=== PATIENT | male | born 1935 | race Hispanic/Latino ===

== ENCOUNTER 2018-09-04 21:36 | Inpatient (IN) | payer MEDICARE, MEDICAID ==
[~2018-09-04 21:36] MED LIST: ISOVUE-370 76%-LOCM 1 ML ONE
[2018-09-04 22:22] LABS: #Eosinphils 0.3 thou/uL (0.0-0.7); #Lymphocytes 2.3 thou/uL (1.20-3.40); #Neutrophils 4.8 thou/uL (1.40-6.50); %Basophils 0.5 % (0.0-1.0); %Lymphocytes 27.5 % (21.0-51.0); %Monocytes 11.2 % (0.0-10.0); %Neutrophils 56.8 % (42.0-75.0); Mean Corpuscular HGB CONC 34.6 g/dL (32.0-36.0); Mean Corpuscular Hemoglobin 32.9 pg (27.0-31.0); Mean Corpuscular Volume 95.2 fL (78.0-98.0); Mean Platelet Volume 7.9 fL (7.4-10.4); Platelet Count 169 thou/uL (130-400); RBC Distribution Width 12.8 % (11.5-14.5); Red Blood Cell (RBC) Count 3.94 mill/uL (4.70-6.10); White Blood Cell (WBC) Count 8.4 thou/uL (4.8-10.8)
[2018-09-04 22:40] LABS: ALT (SGPT) 33 U/L (8-55); AST (SGOT) 33 U/L (5-34); Albumin 3.8 g/dL (3.4-4.8); Alkaline Phosphatase 96 U/L (40-150); Anion Gap 17 mmol/L (10-20); BUN (Urea Nitrogen) 12 mg/dL (8.4-25.7); Bilirubin, Total 0.4 mg/dL (0.2-1.2); Calc. Creatinine Clearance 0 mL/min (70-130); Calcium 9.5 mg/dL (7.8-10.44); Carbon Dioxide 23 mmol/L (23-31); Chloride 101 mmol/L (98-107); Estimated GFR-MDRD 85; Globulin 4.1 g/dL (2.4-3.5); Glucose 123 mg/dL (83-110); Potassium 3.6 mmol/L (3.5-5.1); Protein, Total 7.9 g/dL (5.8-8.1); Sodium 137 mmol/L (136-145)
--- NOTE | 2018-09-04 23:21 | CT ---
CT ABDOMEN AND PELVIS WITH CONTRAST: HISTORY: Sudden onset of bleeding from the patient's abdominal surgical scar in the left lower quadrant of the abdomen. The patient has a history of colon cancer, for which he had this surgery. COMPARISON: 04/28/2015 TECHNIQUE: Multiple contiguous axial images were obtained in a CT of the abdomen and pelvis with contrast. Mylene nal reformats were performed. FINDINGS: There is a stable, 1.2 cm hypodensity in the liver, which likely represents a small cyst. The gallbl adder has been removed. The kidneys, adrenal glands, spleen, and pancreas are unremarkable. No free air, free fluid, or stranding changes are seen in the abdomen or pelvis. The patient's lower rectus abdominis muscles are more thickened than they were on the prior examinati on. There is a small area of separation of the rectus abdominis muscles, measuring 1.1 cm in width. Fat appears to extend through this separation, into the subcutaneous tissues. There is the appearan ce of encapsulated omentum just beneath the defect within the abdominal cavity, measuring 7.9 cm in s ize. Between the rectus abdominis muscles, there is also a fluid collection, which may represent the known hematoma. This extends to the skin along the lower abdominal incision and likely represents t he known bleeding in this location. Degenerative changes are seen in the spine. The visualized inferior thorax is unremarkable. IMPRESSION: 1. The patient appears to have a small, recurrent hernia along the lower abdominal incision, through which omental fat is present. There is enlargement of the rectus abdominis muscle and high density fluid extending to the lower aspect of the incision, which likely represents the patient's bleeding. The patient may have bleeding near the rectus abdominis muscles/rectus sheath hematomas, which are e vacuating superficially along the lower aspect of the incision. Correlate with the patient's coagula tion status. POS: [facility]
[2018-09-04] MEDS ORDERED: Piperacillin/Tazobactam 4.5 GM VIAL ONE (23:55)
[2018-09-05 01:42] VITALS: BMI 25.9
[2018-09-05] MEDS ORDERED: Ondansetron PF 4 MG/2 ML Vial IVP PRN (02:30)
[2018-09-05] MEDS ORDERED: Ondansetron ODT 4 MG TAB SL PRN (02:30)
[2018-09-05 02:35] LABS: Lactic Acid 2.9 mmol/L (0.5-2.2)
[2018-09-05] MEDS: Dextrose 5 % And 0.9 % NaCl 1,000 ML IV SCH ×2 (03:23→16:39)
[2018-09-05] MEDS ORDERED: Piperacillin/Tazobactam 3.375 GM in Sodium Chloride 0.9% 100 ML IVPB SCH (06:00)
[2018-09-05] MEDS ORDERED: Dextrose 5% in Water 1,000 ML IV PRN (19:11)
[2018-09-05] MEDS ORDERED: HumaLOG 300 UNITS/3 ML VIAL SC PRN (19:11)
[2018-09-05] MEDS ORDERED: Dextrose 50% Abboject 50 ML SYRINGE SLOW IVP PRN (19:11)
[2018-09-05] MEDS ORDERED: Ibuprofen 600 MG TAB PO PRN (19:15)
[2018-09-05] MEDS ORDERED: Acetaminophen 500 MG TAB PO PRN ×2 (19:15→19:16)
[2018-09-05] MEDS ORDERED: traMADol HCl 50 MG TAB PO PRN ×2 (19:15)
[2018-09-05] MEDS: Piperacillin/Tazobactam 3.375 GM in Sodium Chloride 0.9% 100 ML IVPB SCH (20:40)
[2018-09-05] MEDS: Enoxaparin Sodium 40 MG/0.4 ML SYRINGE SC SCH (20:41)
[2018-09-05] MEDS ORDERED: Pravastatin Sodium 20 MG TAB PO SCH (21:00)
[2018-09-06] MEDS: Piperacillin/Tazobactam 3.375 GM in Sodium Chloride 0.9% 100 ML IVPB SCH ×4 (02:55→19:52)
--- NOTE | 2018-09-06 04:46 | HP ---
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 The patient underwent postoperative chemotherapy. The patient states for the past 2 to 3 months, he has been having drainage from his lower midline wound. He denies any trauma. He was seen in the emergency room on this occasion and evaluated. A CT scan of the abdomen and pelvis revealing lower rectus muscles more thickened than usual, area of separation of rectus muscles, infraumbilical midline 1.1 cm in width. The fat appears to extend to the separation of the subcutaneous tissues. There is appearance of a capsulated omentum just beneath the defect with abdominal cavity measured 7.9 cm in diameter. Between the rectus muscles, there also a fluid collection probably as a hematoma. On evaluation of the wound, there is thick blood appearing possibly purulent drainage. Cultures from this yesterday did not reveal any organisms on Gram stain. The patient's white count is 8. He has been afebrile. ALLERGIES: NONE. SOCIAL HISTORY: Tobacco, none. Alcohol, none. MEDICATIONS: At home; 1. Metformin 500 b.i.d. 2. Flomax 0.4 mg a day. 3. Pravastatin 20 mg . 4. Multivitamins daily. 5. Lisinopril 5 mg a day. 6. Finasteride 5 mg a day. 7. Aspirin 325 mg a day. 8. Tylenol daily. PAST MEDICAL HISTORY: Xuf-mvvagug-safokljie diabetes mellitus, hypertension, hyperlipidemia, BPH. PAST SURGICAL HISTORY: Cholecystectomy, open and sigmoid colon resection for cancer. PHYSICAL EXAMINATION: VITAL SIGNS: Height 5 foot 7 inches, weight 165 pounds, 26 BMI. Temperature 98.3 degrees, blood pressure 143/81. HEAD, EARS, EYES, NOSE, AND THROAT: Unremarkable. LUNGS: Clear to auscultation. CARDIAC: Regular rate and rhythm without murmur or gallop. ABDOMEN: Soft and nontender. Below his umbilicus midline, there is an area of mild redness and he has some old bloody purulent appearing drainage. EXTREMITIES: Unremarkable. ASSESSMENT AND PLAN: 1. Abdominal wound, lower midline. CAT scan suggests a small hernia. We will plan expiration tomorrow and give antibiotics tonight. We will plan to explore the wound and resection of the process, irrigation and closure of the defect. 2. Diabetes mellitus. 3. Hypertension. 4. History of T3 N0 M0 sigmoid colon cancer resection, status post chemotherapy. Job ID: [id number]
[2018-09-06] MEDS ORDERED: Lactated Ringer's 1,000 ML IV SCH (08:00)
[2018-09-06] MEDS ORDERED: metFORMIN 500 MG TAB PO SCH (08:00)
[2018-09-06] MEDS: Multivit, Therapeutic 1 TAB PO SCH (08:09)
[2018-09-06] MEDS: Finasteride 5 MG TAB PO SCH (08:09)
[2018-09-06] MEDS: Tamsulosin HCl 0.4 MG CAP PO SCH (08:09)
[2018-09-06] MEDS ORDERED: Aspirin 325 MG TAB PO SCH (09:00)
[2018-09-06] MEDS ORDERED: Lisinopril 5 MG TAB PO SCH (09:00)
[2018-09-06] MEDS ORDERED: Fentanyl 100 MCG/2 ML VIAL ONE ×4 (12:13→15:48)
[2018-09-06] MEDS ORDERED: PACU-Morphine 4MG/ML VIAL SLOW IVP PRN (13:26)
[2018-09-06] MEDS ORDERED: Promethazine HCl 25 MG/ML VIAL IM PRN (13:26)
[2018-09-06] MEDS ORDERED: Ondansetron HCl/PF 4 MG/2 ML Vial IVP PRN (13:26)
[2018-09-06] MEDS ORDERED: Promethazine HCl 25 MG/ML VIAL SLOW IVP PRN (13:26)
[2018-09-06] MEDS ORDERED: diphenhydrAMINE 50 MG/ML VIAL IM PRN (15:22)
[2018-09-06] MEDS ORDERED: HYDROmorphone 10 mg/100 ml CADD IVPB PRN (15:22)
[2018-09-06] MEDS ORDERED: diphenhydrAMINE 25 MG CAP PO PRN (15:22)
[2018-09-06] MEDS ORDERED: diphenhydrAMINE 50 MG/ML VIAL IVP PRN (15:22)
[2018-09-06] MEDS ORDERED: Zolpidem Tartrate 5 MG TAB PO PRN (15:22)
[2018-09-06] MEDS ORDERED: Naloxone HCl 0.4 mg/ml Vial IV PRN (15:22)
[2018-09-06] MEDS ORDERED: Communication Order-Pharmacy FS SCH (15:30)
--- NOTE | 2018-09-06 16:57 | OP ---
DATE OF PROCEDURE: 09/06/2018 PREOPERATIVE DIAGNOSES: History of sigmoid T4 N0 M0 colon cancer resection now four years later has incisional hernia, liquified necrosis omentum with intraabdominal abscess and rectus hematoma. PROCEDURES PERFORMED: Exploratory laparotomy, drainage of intraperitoneal abscess, resection of liquefied necrotic omentum, lysis of adhesions, appendectomy (involved in inflammatory process), closure of incisional hernia/wound dehiscence, fascial (from four years ago) with debridement of skin, subcutaneous tissue, and fascia, and closure of fascial defect. Wound VAC applied. ANESTHESIA: General. ESTIMATED BLOOD LOSS: 100 mL. DESCRIPTION OF PROCEDURE: The patient was taken to the operating room, where under general anesthesia, abdomen was clipped of hair, prepared with ChloraPrep, and draped in routine fashion. Cisneros catheter was placed. Incision was made through the old incision and lengthened. Following the incision extended from below the umbilicus to above the pubis, it was carried down to the skin and subcutaneous tissue. There was a severe inflammatory action with wall of inflammatory process in the subcutaneous tissue, extending through a fascial defect into the abdominal cavity, where there was necrotic liquified omentum. This was carefully dissected free from surrounding small bowel. To exactly identify structures, I had to lengthen the incision of the length described. Small bowel adhesions were taken down. There was some inflammatory capsule adherent to the small bowel, but there was no violation of small bowel. No sutures were required in the small bowel. Small bowel was not distended. The appendix was involved in inflammatory process and finally after it was taken down, although it was severely inflamed. There was no evidence of past appendicitis. Mesoappendix taken down with the LigaSure and stump divided. Endo-DENVER blue load stapler at the cecal stump was used to cauterize the cautery for hemostasis. Necrotic omentum removed, and the skin, subcutaneous tissue, and fascia debrided sharply, removing the inflammatory process back to healthy fascia and subcutaneous tissue. Abdominal cavity was thoroughly irrigated and bowel run to and fro from ligament of Treitz to cecum three times noting absence of any violation of small bowel. Right colon was normal. At this point, abdominal cavity thoroughly irrigated with several liters of saline solution, irrigant evacuated. Sponge and needle counts were correct. Seprafilm was applied and the fascia approximated with a combination of continuous and interrupted sutures of #1 PDS. Skin and subcutaneous tissues were irrigated. Upper skin and lower skin approximated with enid. Mid skin and subcutaneous tissues left open. Wound VAC applied. The patient tolerated the procedure well. NG tube palpated in good position prior to closure. Job ID: [id number]
[2018-09-06] MEDS: Lactated Ringer's 1,000 ML IV SCH ×2 (18:23→23:47)
[2018-09-06] MEDS: Acetaminophen 1,000 MG in Premix Bag 1 BAG IVPB SCH ×2 (18:23→23:40)
[2018-09-06] MEDS: Enoxaparin Sodium 40 MG/0.4 ML SYRINGE SC SCH (19:53)
[2018-09-06] MEDS: Pantoprazole 40 MG VIAL IVP SCH (19:53)
[2018-09-06] MEDS ORDERED: Ondansetron PF 4 MG/2 ML Vial ONE (20:01)
[2018-09-06] MEDS ORDERED: Lidocaine 1% PF 5 ML VIAL ONE (20:01)
[2018-09-06] MEDS ORDERED: Glycopyrrolate 0.2 MG/ML 5 ML SYRINGE ONE (20:01)
[2018-09-06] MEDS ORDERED: PROPOFOL 200 MG/20 ML VIAL ONE (20:01)
[2018-09-07] MEDS: Piperacillin/Tazobactam 3.375 GM in Sodium Chloride 0.9% 100 ML IVPB SCH ×4 (02:19→20:04)
[2018-09-07] MEDS: Lactated Ringer's 1,000 ML IV SCH ×2 (06:09→17:57)
[2018-09-07] MEDS: Acetaminophen 1,000 MG in Premix Bag 1 BAG IVPB SCH ×3 (06:09→17:55)
[2018-09-07 07:45] LABS: #Eosinphils 0.1 thou/uL (0.0-0.7); #Lymphocytes 2.2 thou/uL (1.20-3.40); #Monocytes 0.8 thou/uL (0.11-0.59); #Neutrophils 7.1 thou/uL (1.40-6.50); %Basophils 0.3 % (0.0-1.0); %Eosinophils 0.5 % (0.0-10.0); %Lymphocytes 21.3 % (21.0-51.0); %Monocytes 7.7 % (0.0-10.0); %Neutrophils 70.3 % (42.0-75.0); Hemoglobin 11.5 g/dL (14.0-18.0); Mean Corpuscular Hemoglobin 32.6 pg (27.0-31.0); Mean Corpuscular Volume 95.8 fL (78.0-98.0); Platelet Count 171 thou/uL (130-400); RBC Distribution Width 12.8 % (11.5-14.5); Red Blood Cell (RBC) Count 3.52 mill/uL (4.70-6.10); White Blood Cell (WBC) Count 10.1 thou/uL (4.8-10.8)
[2018-09-07 08:09] LABS: ALT (SGPT) 27 U/L (8-55); AST (SGOT) 25 U/L (5-34); Albumin 3.2 g/dL (3.4-4.8); Alkaline Phosphatase 45 U/L (40-150); Anion Gap 13 mmol/L (10-20); BUN (Urea Nitrogen) 9 mg/dL (8.4-25.7); Bilirubin, Total 0.8 mg/dL (0.2-1.2); Calc. Creatinine Clearance 67 mL/min (70-130); Calcium 8.4 mg/dL (7.8-10.44); Carbon Dioxide 25 mmol/L (23-31); Chloride 104 mmol/L (98-107); Estimated GFR-MDRD 85; Globulin 3.3 g/dL (2.4-3.5); Glucose 131 mg/dL (83-110); Potassium 4.3 mmol/L (3.5-5.1); Protein, Total 6.5 g/dL (5.8-8.1); Sodium 138 mmol/L (136-145)
[2018-09-07] MEDS: Finasteride 5 MG TAB PO SCH (08:36)
[2018-09-07] MEDS: Tamsulosin HCl 0.4 MG CAP PO SCH (08:37)
[2018-09-07] MEDS: Multivit, Therapeutic 1 TAB PO SCH (08:37)
[2018-09-07] MEDS: Enoxaparin Sodium 40 MG/0.4 ML SYRINGE SC SCH (20:04)
[2018-09-07] MEDS: Pantoprazole 40 MG VIAL IVP SCH (20:05)
--- NOTE | 2018-09-07 22:38 | PDOC.OP ---
Operative Note - Operative Note Operative Note: Patient is status post drainage of abdominal wall abscess and debridement of necrotic omentum. NG tube was placed but he denies any nausea and output has been minimal. Vitals are okay although heart rate is up a bit. Urine output has been good and labs are okay. He has a VAC dressing in place with minimal serosanguineous drainage. Assessment/plan: Doing well following operative debridement of necrotic omentum and old rectus sheath hematoma which had evolved into an abdominal wall abscess. We will try clamping his NG and if the output is minimal and he is not nauseated we will discontinue this and place him on clears. He states that he has been passing gas so if he tolerates clears we can advance him to full liquids tomorrow
[2018-09-08] MEDS: Acetaminophen 1,000 MG in Premix Bag 1 BAG IVPB SCH ×4 (00:18→18:00)
[2018-09-08] MEDS: Piperacillin/Tazobactam 3.375 GM in Sodium Chloride 0.9% 100 ML IVPB SCH ×4 (02:59→20:07)
[2018-09-08] MEDS: Lactated Ringer's 1,000 ML IV SCH ×3 (05:36→14:16)
[2018-09-08 06:46] LABS: #Eosinphils 0.2 thou/uL (0.0-0.7); #Lymphocytes 1.7 thou/uL (1.20-3.40); #Monocytes 0.8 thou/uL (0.11-0.59); #Neutrophils 7.1 thou/uL (1.40-6.50); %Basophils 0.3 % (0.0-1.0); %Eosinophils 1.9 % (0.0-10.0); %Lymphocytes 17.3 % (21.0-51.0); %Monocytes 7.7 % (0.0-10.0); %Neutrophils 72.8 % (42.0-75.0); Mean Corpuscular Hemoglobin 33.4 pg (27.0-31.0); Mean Corpuscular Volume 95.4 fL (78.0-98.0); Mean Platelet Volume 8.2 fL (7.4-10.4); Platelet Count 133 thou/uL (130-400); RBC Distribution Width 12.7 % (11.5-14.5); White Blood Cell (WBC) Count 9.8 thou/uL (4.8-10.8)
[2018-09-08 06:57] LABS: Anion Gap 12 mmol/L (10-20); BUN (Urea Nitrogen) 7 mg/dL (8.4-25.7); Calc. Creatinine Clearance 77 mL/min (70-130); Calcium 8.6 mg/dL (7.8-10.44); Carbon Dioxide 24 mmol/L (23-31); Chloride 103 mmol/L (98-107); Estimated GFR-MDRD Greater than 90; Glucose 115 mg/dL (83-110); Potassium 3.7 mmol/L (3.5-5.1); Sodium 135 mmol/L (136-145)
[2018-09-08] MEDS: Finasteride 5 MG TAB PO SCH (07:58)
[2018-09-08] MEDS: Tamsulosin HCl 0.4 MG CAP PO SCH (07:58)
[2018-09-08] MEDS: Multivit, Therapeutic 1 TAB PO SCH (07:58)
--- NOTE | 2018-09-08 17:43 | EKG ---
Test Reason : Blood Pressure : / mmHG Vent. Rate : 088 BPM Atrial Rate : 088 BPM P-R Int : 108 ms QRS Dur : 138 ms QT Int : 396 ms P-R-T Axes : 027 -55 012 degrees QTc Int : 479 ms Sinus rhythm with short VA Right bundle branch block Left anterior fascicular block Bifascicular block Moderate voltage criteria for LVH, may be normal variant Cannot rule out Septal infarct , age undetermined Abnormal ECG Confirmed by CORAZON POON ([id number]), supervising editor trailer CAMILA OLSEN ([id number]) on 09/08/2018 5:42:55 PM Referred By: Confirmed By:CORAZON POON
[2018-09-08] MEDS: Enoxaparin Sodium 40 MG/0.4 ML SYRINGE SC SCH (20:07)
[2018-09-08] MEDS: Pantoprazole 40 MG VIAL IVP SCH (20:07)
[2018-09-09] MEDS: Lactated Ringer's 1,000 ML IV SCH ×3 (00:20→13:18)
[2018-09-09] MEDS: Acetaminophen 1,000 MG in Premix Bag 1 BAG IVPB SCH ×4 (00:20→17:34)
[2018-09-09] MEDS: Piperacillin/Tazobactam 3.375 GM in Sodium Chloride 0.9% 100 ML IVPB SCH ×4 (01:14→20:19)
[2018-09-09] MEDS: Multivit, Therapeutic 1 TAB PO SCH (08:49)
[2018-09-09] MEDS: Finasteride 5 MG TAB PO SCH (08:49)
[2018-09-09] MEDS: Tamsulosin HCl 0.4 MG CAP PO SCH (08:49)
[2018-09-09] MEDS: Ondansetron PF 4 MG/2 ML Vial IVP PRN (10:25)
--- NOTE | 2018-09-09 13:38 | PRG ---
DATE OF SERVICE: SUBJECTIVE: Mr. Newton is postoperative day #3 from resection of necrotic omentum through an exploratory laparotomy with drainage of an intraperitoneal abscess. He has a wound VAC intact over his abdominal wound. He is on a clear liquid diet and denies any nausea or vomiting. He has had one episode of flatus, but not had a bowel movement. He is ambulating occasionally with the walking team. OBJECTIVE: VITAL SIGNS: On examination, he is afebrile with temperature of 97.5. His pulse is elevated and is currently about 118. Blood pressure is 126/78. He is urinating without difficulties in the urinal and it appears that he had 2900 mL of urine output yesterday. LUNGS: Clear to auscultation. ABDOMEN: Normoactive bowel sounds. Wound VAC is intact on his abdomen. LABORATORY DATA: His hemoglobin yesterday was 10, but has not been rechecked today. Electrolytes were not checked today either. ASSESSMENT AND PLAN: He appears to be progressing appropriately following his recent laparotomy. I will advance his diet up to full liquids today and decrease his IV fluids. Hopefully, a home wound VAC will be able to be arranged, as he looks like he may be ready for discharge in the next couple of days. Job ID: [id number]
[2018-09-09] MEDS: Enoxaparin Sodium 40 MG/0.4 ML SYRINGE SC SCH (20:18)
[2018-09-09] MEDS: Pantoprazole 40 MG VIAL IVP SCH (20:18)
[2018-09-09] MEDS: Promethazine HCl 25 MG/ML VIAL IM PRN (21:01)
[2018-09-09] MEDS ORDERED: HYDROcodone/Acetaminophen 7.5/325 mg Tablet PO PRN ×2 (22:00)
[2018-09-10] MEDS: Piperacillin/Tazobactam 3.375 GM in Sodium Chloride 0.9% 100 ML IVPB SCH ×4 (01:07→20:46)
[2018-09-10] MEDS: Lactated Ringer's 1,000 ML IV SCH ×2 (01:10→13:22)
[2018-09-10] MEDS: Ketorolac Tromethamine 30 MG/ML VIAL IVP PRN ×3 (02:38→20:46)
[2018-09-10] MEDS: Ondansetron PF 4 MG/2 ML Vial IVP PRN ×2 (02:38→16:50)
[2018-09-10 06:04] LABS: #Eosinphils 0.2 thou/uL (0.0-0.7); #Lymphocytes 1.7 thou/uL (1.20-3.40); #Monocytes 0.7 thou/uL (0.11-0.59); #Neutrophils 8.9 thou/uL (1.40-6.50); %Lymphocytes 14.6 % (21.0-51.0); %Monocytes 5.7 % (0.0-10.0); %Neutrophils 77.7 % (42.0-75.0); Hemoglobin 10.9 g/dL (14.0-18.0); Mean Corpuscular HGB CONC 33.8 g/dL (32.0-36.0); Mean Corpuscular Hemoglobin 32.4 pg (27.0-31.0); Mean Corpuscular Volume 95.9 fL (78.0-98.0); Mean Platelet Volume 7.6 fL (7.4-10.4); Platelet Count 193 thou/uL (130-400); RBC Distribution Width 13.1 % (11.5-14.5); Red Blood Cell (RBC) Count 3.36 mill/uL (4.70-6.10); White Blood Cell (WBC) Count 11.4 thou/uL (4.8-10.8)
[2018-09-10 06:22] LABS: Anion Gap 14 mmol/L (10-20); BUN (Urea Nitrogen) 11 mg/dL (8.4-25.7); Calc. Creatinine Clearance 74 mL/min (70-130); Calcium 8.8 mg/dL (7.8-10.44); Carbon Dioxide 21 mmol/L (23-31); Chloride 107 mmol/L (98-107); Estimated GFR-MDRD Greater than 90; Glucose 126 mg/dL (83-110); Sodium 138 mmol/L (136-145)
--- NOTE | 2018-09-10 08:23 | PRG ---
DATE OF SERVICE: 09/10/2018 SUBJECTIVE: Mr. Newton is postoperative day number 4 from resection of necrotic omentum through an exploratory laparotomy with drainage of an intra-abdominal abscess. There was no drain left after his surgery. He has a wound VAC over his open abdominal wound. He was on a clear liquid diet yesterday and seemed to be doing well, and he was advanced to a full liquid diet. He tells me that he developed vomiting and heartburn overnight. He has not had any further flatus or bowel movement. OBJECTIVE: GENERAL: On examination, he is afebrile with temperature of 99.3. His pulse is 100, which has been stable over the past 3 days. His blood pressure is 150/78. LUNGS: Clear to auscultation. ABDOMEN: Appears distended, but seems to have normoactive bowel sounds. There is some mild discomfort with palpation, but no acute tenderness or peritoneal findings. LABORATORY DATA: Basic metabolic panel for today is essentially normal, except his CO2 has dropped from 24 down to 21 over the past couple of days. His CBC shows his white blood cell count has gone up from 9.8 to 11.4. His hemoglobin is stable at 10.9. ASSESSMENT: He had an episode of vomiting last night. I will check abdominal x-ray today. His abdomen looks a little distended, but does not sound as though there is any ileus or obstructive process. Diet will be managed based upon the appearance of his abdominal x-ray. For now, decrease him to clear liquids. Labs will be checked again tomorrow. He continues to receive Zosyn as an antibiotic. Job ID: [id number]
[2018-09-10] MEDS: Tamsulosin HCl 0.4 MG CAP PO SCH (08:59)
[2018-09-10] MEDS: Finasteride 5 MG TAB PO SCH (08:59)
[2018-09-10] MEDS: Multivit, Therapeutic 1 TAB PO SCH (08:59)
--- NOTE | 2018-09-10 09:44 | RAD ---
KUB: DATE: 09/10/2018. PROVIDED CLINICAL HISTORY: Ileus. FINDINGS: The abdominal bowel gas pattern is nonspecific. The supine nature of the study is not sensitive for detection of free air. Catheter overlies the pelvis and right superior and inferior pubic rami. Cut aneous enid overlie the anterior aspect of the abdomen. IMPRESSION: Nonspecific bowel gas pattern. POS: [facility]
[2018-09-10] MEDS ORDERED: Polyethylene Glycol 3350 17 GM Packet PO SCH (09:45)
[2018-09-10] MEDS: Pantoprazole 40 MG VIAL IVP SCH (20:50)
[2018-09-10] MEDS: Enoxaparin Sodium 40 MG/0.4 ML SYRINGE SC SCH (20:51)
[2018-09-11] MEDS: Piperacillin/Tazobactam 3.375 GM in Sodium Chloride 0.9% 100 ML IVPB SCH ×4 (02:22→20:59)
[2018-09-11] MEDS: Lactated Ringer's 1,000 ML IV SCH (02:44)
[2018-09-11 06:16] LABS: #Eosinphils 0.2 thou/uL (0.0-0.7); #Lymphocytes 1.8 thou/uL (1.20-3.40); #Monocytes 0.8 thou/uL (0.11-0.59); #Neutrophils 10.7 thou/uL (1.40-6.50); %Basophils 0.1 % (0.0-1.0); %Eosinophils 1.4 % (0.0-10.0); %Lymphocytes 13.1 % (21.0-51.0); %Monocytes 5.8 % (0.0-10.0); %Neutrophils 79.7 % (42.0-75.0); Hemoglobin 9.7 g/dL (14.0-18.0); Mean Corpuscular Hemoglobin 32.7 pg (27.0-31.0); Mean Platelet Volume 7.7 fL (7.4-10.4); Platelet Count 147 thou/uL (130-400); RBC Distribution Width 13.2 % (11.5-14.5); Red Blood Cell (RBC) Count 2.96 mill/uL (4.70-6.10); White Blood Cell (WBC) Count 13.5 thou/uL (4.8-10.8)
[2018-09-11 06:38] LABS: Anion Gap 13 mmol/L (10-20); BUN (Urea Nitrogen) 11 mg/dL (8.4-25.7); Calc. Creatinine Clearance 80 mL/min (70-130); Calcium 8.2 mg/dL (7.8-10.44); Carbon Dioxide 24 mmol/L (23-31); Chloride 104 mmol/L (98-107); Estimated GFR-MDRD Greater than 90; Glucose 105 mg/dL (83-110); Potassium 3.6 mmol/L (3.5-5.1); Sodium 137 mmol/L (136-145)
[2018-09-11] MEDS: Tamsulosin HCl 0.4 MG CAP PO SCH (08:06)
[2018-09-11] MEDS: Polyethylene Glycol 3350 17 GM Packet PO SCH (08:06)
[2018-09-11] MEDS: Multivit, Therapeutic 1 TAB PO SCH (08:06)
[2018-09-11] MEDS: Finasteride 5 MG TAB PO SCH (08:06)
[2018-09-11] MEDS: Ondansetron PF 4 MG/2 ML Vial IVP PRN (08:26)
[2018-09-11] MEDS ORDERED: Polyethylene Glycol 3350 17 GM Packet PO SCH ×2 (09:00)
[2018-09-11] MEDS: Promethazine HCl 25 MG/ML VIAL IM PRN (10:57)
[2018-09-11] MEDS ORDERED: Fleet Enema 133 ML BOT PR SCH (16:15)
--- NOTE | 2018-09-11 16:58 | PRG ---
DATE OF SERVICE: 09/11/2018 SUBJECTIVE: Mr. Newton is postoperative day #5 from resection of necrotic omentum and repair of abdominal wall hernia. He apparently had an intraabdominal abscess. There was no drain left after surgery. He still has a wound VAC over his abdominal wound. He has still been on a clear liquid diet. He tells me he has vomited, but I cannot get a clear story from him as far as when he vomited or how much he vomited or whether he even vomited up food contents as opposed to spit. He tells me he has ambulated in the hallway and urinated well. He notes a sensation of some abdominal distention and discomfort. He tells me he has not had a bowel movement in the past 24 hours, but he believes he is passing flatus. I obtained a KUB yesterday, which revealed a nonspecific gas pattern. Laboratory studies were obtained today. His hemoglobin level was dropped a little bit from 10.9 yesterday down to 9.7 today. His white blood cell count has risen from 11 yesterday to 13.5 today. He has left shift associated with this. His basic metabolic panel is entirely normal. OBJECTIVE: VITAL SIGNS: He is afebrile. Pulse is in the 90s and regular. Blood pressure is 155/83. LUNGS: Clear to auscultation. ABDOMEN: Bowel sounds present. In a couple of areas, he seemed to be somewhat tympanitic. He does appear to have some abdominal distention, specifically in the upper abdomen. He has dressing intact over his midline incision. There is mild discomfort diffusely to palpation, but no focal area of tenderness. EXTREMITIES: Unremarkable. ASSESSMENT: The patient continues to stall in regard to his recuperation. His bowel function has not allowed him to advance. Whether he has some degree of ileus or obstructive pattern, it is difficult to discern. He continues to receive intravenous antibiotics with Zosyn. His cultures, which I suspect were from the time of surgery, were negative. For now, we will continue with a clear liquid diet. I will have an enema performed on him to see if this helps him with his constipation. He is getting MiraLAX daily. Since he has delayed return of bowel function that is somewhat unanticipated and his white blood cell count is rising, I will order a CT scan of his abdomen and pelvis to ensure that there is no underlying problem that is causing this. Job ID: [id number]
--- NOTE | 2018-09-11 18:52 | CT ---
ABDOMEN AND PELVIC CT SCAN IV CONTRAST: 09/11/18 HISTORY: 83-year-old male with history of nausea and vomiting, white blood cell elevation and distention. Small bilateral pleural effusions. Bibasilar pulmonary parenchymal changes are noted in a patchy dist ribution throughout the right and left lower lobes involving minimally the right middle lobe and ling davina as well. I favor this to represent bilateral atypical pneumonia. There is some scattered free int raperitoneal air consistent with recent surgery. Small stable left lobe of liver cysts. There is some dilatation and distention of the stomach with some fluid and gas as well as mildly dilated jejunum i ncluding one moderately dilated loop of jejunum up to approximately 0.5 cm possibly focal ileus versu s possibility of low grade partial small bowel obstruction. There is scattered gas and some fluid thr oughout the small bowel and large bowel. Postoperative changes are noted in the anterior abdominal wa ll with correction of the previously noted anterior abdominal wall hernia. There is an approximately 3.6 x 8.2 cm diameter circumscribed fluid collection beneath the anterior abdominal wall at the opera tive site with some subtle increased attenuation, I favor this being a postoperative seroma. There ap pears to be some trace free fluid in the pelvis. No biliary ductal dilatation. The pancreas, spleen, adrenal glands are unremarkable. No renal calculus or obstruction. Probable small left renal cyst. Small fat containing left inguinal hernia. IMPRESSION: Fairly extensive bilateral lower lobe patchy interstitial and alveolar parenchymal changes with small pleural effusions. This is more diffuse than what would be expected with subsegmental atelectasis a nd may well represent a component of bilateral atypical pneumonia recent postoperative changes in the abdomen with some dilatation and distention of the stomach and proximal small bowel with one jejunal bowel loop up to approximately 5 cm which I favor to be related to ileus rather than low grade parti al small bowel obstruction. There is some scattered upper retroperitoneal lymph nodes which are up to borderline in size but without overt lymphadenopathy. Status post cholecystectomy without ductal dil atation. Somewhat irregular shaped circumscribed fluid collection beneath the anterior abdominal wall at the level of the umbilicus favored to be a postoperative seroma. Trace free fluid in the pelvis. Small fat containing left inguinal hernia. Other findings as above. POS: [facility]
[2018-09-11] MEDS: Enoxaparin Sodium 40 MG/0.4 ML SYRINGE SC SCH (21:02)
[2018-09-11] MEDS: Pantoprazole 40 MG VIAL IVP SCH (21:02)
[2018-09-12] MEDS ORDERED: Clopidogrel Bisulfate 75 MG TAB ONE (01:16)
[2018-09-12] MEDS: Piperacillin/Tazobactam 3.375 GM in Sodium Chloride 0.9% 100 ML IVPB SCH ×4 (02:18→20:55)
[2018-09-12] MEDS: Lactated Ringer's 1,000 ML IV SCH ×2 (04:46→08:12)
[2018-09-12 06:04] LABS: #Eosinphils 0.1 thou/uL (0.0-0.7); #Lymphocytes 1.2 thou/uL (1.20-3.40); #Monocytes 0.8 thou/uL (0.11-0.59); %Basophils 0.3 % (0.0-1.0); %Lymphocytes 9.9 % (21.0-51.0); %Monocytes 6.6 % (0.0-10.0); %Neutrophils 82.2 % (42.0-75.0); Hemoglobin 9.1 g/dL (14.0-18.0); Mean Corpuscular HGB CONC 33.9 g/dL (32.0-36.0); Mean Corpuscular Hemoglobin 32.2 pg (27.0-31.0); Mean Platelet Volume 7.6 fL (7.4-10.4); Platelet Count 140 thou/uL (130-400); RBC Distribution Width 13.1 % (11.5-14.5); Red Blood Cell (RBC) Count 2.83 mill/uL (4.70-6.10); White Blood Cell (WBC) Count 12.2 thou/uL (4.8-10.8)
[2018-09-12] MEDS: Finasteride 5 MG TAB PO SCH (08:04)
[2018-09-12] MEDS: Tamsulosin HCl 0.4 MG CAP PO SCH (08:04)
[2018-09-12] MEDS: Multivit, Therapeutic 1 TAB PO SCH (08:04)
[2018-09-12] MEDS: Polyethylene Glycol 3350 17 GM Packet PO SCH ×2 (08:05)
[2018-09-12] MEDS ORDERED: Acetaminophen 500 MG TAB PO PRN (11:36)
[2018-09-12] MEDS ORDERED: traMADol HCl 50 MG TAB PO PRN ×2 (11:36)
--- NOTE | 2018-09-12 13:03 | PRG ---
DATE OF SERVICE: 09/12/2018 SUBJECTIVE: Mauro Newton is doing well today. He is afebrile. He is tolerating his diet. He reports having bowel movements. He has not had any nausea or vomiting. He is hungry. His abdominal wound VAC was changed today and the wound is healing, granulating, looks very good. The wound is intact above and below where the enid are present. OBJECTIVE: VITAL SIGNS: Temperature 98.1 degrees, respirations 16, blood pressure 150/73. LUNGS: Clear to auscultation. CARDIAC: Regular rhythm without murmur or gallop. ABDOMEN: Soft, nontender. EXTREMITIES: Unremarkable. LABORATORY DATA: White count 12, hemoglobin 9.1. Basic metabolic profile was normal yesterday. ASSESSMENT AND PLAN: Recovering from laparotomy. Blood cultures of abdomen reveals Streptococcus intermedius in nutrient broth only. He has been afebrile. Overall, the patient is doing well. At this point, we will advance his diet. Resume his home medications. Anticipate him being discharged home in the next day or two. We will stop his IV fluids. Continue his IV Zosyn for now. Anticipate discharge home in the next 24 to 48 hours pending clinical course. Job ID: [id number]
--- NOTE | 2018-09-12 16:46 | PRG ---
DATE OF SERVICE: 09/12/2018 Mauro Newton four years ago underwent rectosigmoid resection for near obstructing cancer. He was admitted this hospitalization because of an abscess in his abdomen. Cultures reveal Streptococcus. There are no radiological or physical findings of cancer. Currently, approval of the wound VAC has request that I dictate this to state that there is no cancer in his wound bed; this is of course not present. There is no evidence of disease currently. Discharge awaiting wound VAC approval. Job ID: [id number]
[2018-09-12] MEDS: Enoxaparin Sodium 40 MG/0.4 ML SYRINGE SC SCH (20:55)
[2018-09-13] MEDS: Piperacillin/Tazobactam 3.375 GM in Sodium Chloride 0.9% 100 ML IVPB SCH ×3 (01:40→13:28)
[2018-09-13] MEDS: Finasteride 5 MG TAB PO SCH (08:35)
[2018-09-13] MEDS: Multivit, Therapeutic 1 TAB PO SCH (08:35)
[2018-09-13] MEDS: Polyethylene Glycol 3350 17 GM Packet PO SCH (08:36)
[2018-09-13] MEDS: Tamsulosin HCl 0.4 MG CAP PO SCH (08:36)
--- NOTE | 2018-09-13 20:21 | PRG ---
DATE OF SERVICE: 09/13/2018 SUBJECTIVE: Mauro Newton is doing very well today. He is tolerating his diet. He has not had any nausea or vomiting. OBJECTIVE: VITAL SIGNS: Temperature 98.3 degrees, pulse 91, blood pressure 135/75. Urine output is very good. LUNGS: Clear to auscultation. CARDIAC: Regular rate and rhythm without murmur or gallop. ABDOMEN: Soft, nontender. Wound VAC in place. LABORATORY DATA: No labs today. ASSESSMENT AND PLAN: Overall, the patient is doing very well. Plan is for discharge home tomorrow if we can arrange outpatient wound VAC. We will stop his IV antibiotics and place him on oral antibiotics. Job ID: [id number]
[2018-09-13] MEDS: Enoxaparin Sodium 40 MG/0.4 ML SYRINGE SC SCH (21:21)
[2018-09-13] MEDS: Amoxicillin/Potassium Clav 500 MG TAB PO SCH (21:22)
[2018-09-14] MEDS: Amoxicillin/Potassium Clav 500 MG TAB PO SCH (08:31)
[2018-09-14] MEDS: Finasteride 5 MG TAB PO SCH (08:31)
[2018-09-14] MEDS: Multivit, Therapeutic 1 TAB PO SCH (08:32)
[2018-09-14] MEDS: Polyethylene Glycol 3350 17 GM Packet PO SCH (08:32)
[2018-09-14] MEDS: Tamsulosin HCl 0.4 MG CAP PO SCH (08:32)
[2018-09-14 16:10] VITALS: BP 149/75; TEMP 98
[2018-09-14] MEDS ORDERED: Ibuprofen 600 MG TAB PO PRN (17:40)
--- NOTE | 2018-09-15 15:30 | DIS ---
DATE OF ADMISSION: 09/04/2018 DATE OF DISCHARGE: 09/14/2018 HOSPITAL COURSE: Mauro Newton is an 83-year-old male patient admitted to the hospital from the emergency room on 09/04/2018, discharged on 09/14/2018. The patient was seen in the emergency room complaining of abdominal pain and fever. He underwent a CAT scan revealing an infectious process intraabdominal extending to the rectus muscles and had a defect in the midline infraumbilical. This defect was less, was 1.5 to 1.1 cm in diameter, extending the subcutaneous tissues. In 2014, the patient underwent a laparoscopic lower midline incision for a T4 N0 M0 rectosigmoid cancer. He underwent postoperative chemotherapy. He had done well postsurgically until this event. The patient was taken to the operating room for exploration finding liquified soupy omentum involving inflammatory process with adhesion disease. This required extension of his laparotomy incision and the infected tissue was removed and cultured. Cultures revealed Streptococcus intermedius. Persistent broth only. His operation involved adhesiolysis. There was no enterotomy. No bowel resection. This does seem to be all from infected, inflamed omentum. The fascia was debrided. Subcutaneous tissues were debrided. Skin was debrided. The fascia was closed with PDS suture and a wound VAC applied. At this point, the patient has been discharged home with Tylenol, ibuprofen for pain, and Ultram if needed for pain, although he has not even used Ultram in the last few days. He is sent home on Augmentin 500 mg twice a day for 7 days. Outpatient wound VAC care is arranged. He will have a followup in my office in approximately 2 weeks. We will evaluate his wound and make determinations of continued wound care after that. He should avoid lifting over 25 pounds. There is no evidence of cancer at this time. DISCHARGE MEDICATIONS: The patient will resume his home medications; 1. Metformin 500 mg b.i.d. 2. Flomax 0.4 mg a day. 3. Pravastatin 20 mg at bedtime. 4. Multivitamins daily. 5. Lisinopril 5 mg daily. 6. Finasteride 5 mg daily. 7. Aspirin 325 mg a day. 8. Tylenol 1000 mg p.o. q.6 hours. 9. Ultram 50 mg p.o. q.i.d. 1 to 2 p.r.n. pain. Job ID: [id number]
== END 2018-09-14 18:17 | disposition home or self-care (01) | DRG 901 ==
LOC: ERS 21:36 → SURG B 23:30 → SJJU 09-07 22:10
PROVIDERS: ADMIT Surgery; ATTEND Surgery
PROC: 0D9W0ZZ Drainage of Peritoneum, Open Approach (ICD-10-PCS; principal; 2018-09-06)
PROC: 0JB80ZZ Excision of Abdomen Subcutaneous Tissue and Fascia, Open Approach (ICD-10-PCS; 2018-09-06)
PROC: 0DTJ0ZZ Resection of Appendix, Open Approach (ICD-10-PCS; 2018-09-06)
PROC: 0DTU0ZZ Resection of Omentum, Open Approach (ICD-10-PCS; 2018-09-06)
PROC: 0WQF0ZZ Repair Abdominal Wall, Open Approach (ICD-10-PCS; 2018-09-06)
DX: T81.30XA Disruption of wound, unspecified, initial encounter (principal); K65.1 Peritoneal abscess; K55.069 Acute infarction of intestine, part and extent unspecified; L02.211 Cutaneous abscess of abdominal wall; K43.2 Incisional hernia without obstruction or gangrene; E11.9 Type 2 diabetes mellitus without complications; I10 Essential (primary) hypertension; E78.5 Hyperlipidemia, unspecified; N40.0 Benign prostatic hyperplasia without lower urinary tract symptoms; K59.00 Constipation, unspecified; B95.5 Unspecified streptococcus as the cause of diseases classified elsewhere; Z85.038 Personal history of other malignant neoplasm of large intestine; Z90.49 Acquired absence of other specified parts of digestive tract
CPT/HCPCS: 36415; 36416; 74018; 74177; 80048; 80053; 83605; 85025; 87040; 87070; 87076; 87205; 88304; 88307; 93005; 93010; 96365; C9113; G8978-GP-CL; G8979-GP-CJ; J0131; J1650; J1885; J2001; J2405; J2543; J2550; J2704; J3010; J7050

== ENCOUNTER 2021-08-15 17:40 | Inpatient (IN) | payer MEDICARE, MEDICAID ==
[~2021-08-15 17:40] MED LIST changes: -ISOVUE-370 76%-LOCM 1 ML ONE; +Iopamidol-370 76% 500 ML 1 ML ONE
[2021-08-15 18:12] LABS: Bacteria/HPF None Seen HPF (None Seen); Bilirubin Negative (Negative); Blood, Urine 1+ (Negative); Clarity Clear (Clear); Glucose, Urine (Dipstick) Normal (Negative); Ketone, Urine 10 mg/dL (Negative); Leukocyte Negative Leu/uL (Negative); Nitrite Negative (Negative); Protein, Urine (Dipstick) 50 mg/dL (Neg-Trace); RBC/HPF 0-3 HPF (0-3); Squamous Epithelial 0-3 HPF (0-3); Urobilinogen Normal mg/dL (Less than 2); WBC/HPF 0-3 HPF (0-3); pH, Urine 5.5 (5.0-9.0)
[2021-08-15 18:33] LABS: #Lymphocytes 1.2 thou/uL (1.20-3.40); #Monocytes 0.8 thou/uL (0.11-0.59); #Neutrophils 6.1 thou/uL (1.40-6.50); %Basophils 0.2 % (0.0-1.0); %Eosinophils 0.2 % (0.0-10.0); %Lymphocytes 14.9 % (21.0-51.0); %Monocytes 10.3 % (0.0-10.0); %Neutrophils 74.5 % (42.0-75.0); Hemoglobin 13.1 g/dL (14.0-18.0); Mean Corpuscular HGB CONC 35.5 g/dL (32.0-36.0); Mean Corpuscular Hemoglobin 34.7 pg (27.0-31.0); Mean Corpuscular Volume 97.8 fL (78.0-98.0); RBC Distribution Width 12.4 % (11.5-14.5); Red Blood Cell (RBC) Count 3.77 mill/uL (4.70-6.10); White Blood Cell (WBC) Count 8.2 thou/uL (4.8-10.8)
[2021-08-15] MEDS ORDERED: Albuterol 200 PUFF (6.7GM INHALER) ONE (18:39)
[2021-08-15 18:42] LABS: Prothrombin Time 13.6 sec (12.0-14.7)
[2021-08-15 18:43] LABS: PTT 44.1 sec (22.9-36.1)
[2021-08-15 18:49] LABS: Platelet Count 87 thou/uL (130-400); Platelet Morphology Comment Appears Decreased; RBC Morphology Normal
[2021-08-15] MEDS ORDERED: Cefepime 2 GM VIAL ONE (18:54)
[2021-08-15 18:55] LABS: ALT (SGPT) 27 U/L (8-55); AST (SGOT) 28 U/L (5-34); Albumin 3.8 g/dL (3.4-4.8); Alkaline Phosphatase 49 U/L (40-110); Anion Gap 16 mmol/L (10-20); BUN (Urea Nitrogen) 16 mg/dL (8.4-25.7); Bilirubin, Total 0.8 mg/dL (0.2-1.2); Calc. Creatinine Clearance 0 mL/min (70-130); Calcium 8.2 mg/dL (7.8-10.44); Carbon Dioxide 20 mmol/L (23-31); Chloride 102 mmol/L (98-107); Globulin 3.1 g/dL (2.4-3.5); Glucose 128 mg/dL (83-110); Lipase 16 U/L (8-78); Magnesium 1.5 mg/dL (1.6-2.6); Potassium 3.8 mmol/L (3.5-5.1); Protein, Total 6.9 g/dL (5.8-8.1); Sodium 134 mmol/L (136-145)
[2021-08-15] MEDS ORDERED: Ketorolac Tromethamine 30 MG/ML VIAL ONE (20:06)
[2021-08-15] MEDS ORDERED: Magnesium 2 GM/50 ML BAG (IN WATER) ONE (20:06)
[2021-08-15] MEDS ORDERED: Acetaminophen 650 MG Suppository PR PRN (20:50)
[2021-08-15] MEDS ORDERED: Ondansetron ODT 4 MG TAB PO PRN (20:50)
[2021-08-15] MEDS ORDERED: Senokot S 8.6-50 MG TAB PO PRN (20:50)
[2021-08-15] MEDS ORDERED: Ondansetron PF 4 MG/2 ML Vial IVP PRN (20:50)
[2021-08-15] MEDS ORDERED: Dextrose 50% Abboject 50 ML SYRINGE SLOW IVP PRN (20:53)
[2021-08-15] MEDS ORDERED: Dextrose 5% in Water 1,000 ML IV PRN (20:53)
[2021-08-15] MEDS ORDERED: HumaLOG 300 UNITS/3 ML VIAL SC PRN ×2 (20:53)
[2021-08-15] MEDS ORDERED: Albuterol Sulfate 2.5 mg/3 ml Neb NEB PRN (20:55)
[2021-08-15] MEDS ORDERED: Vancomycin 1 GM in Premix Bag 1 BAG IVPB SCH (21:00)
[2021-08-15 21:26] LABS: SARS-CoV-2 NAA Rapid Test Not Detected (NotDetected)
[2021-08-15] MEDS: Sodium Chloride 0.9% 1,000 ML IV SCH (21:34)
[2021-08-15 21:52] VITALS: BMI 26.5
[2021-08-15] MEDS ORDERED: VANCOMYCIN 1.75 GM/350 ML BAG 1.75 GM in Premix Bag 1 BAG IVPB SCH (22:30)
[2021-08-16] MEDS: Acetaminophen 325 MG TAB PO PRN ×2 (05:00→20:42)
[2021-08-16] MEDS: Sodium Chloride 0.9% 1,000 ML IV SCH ×2 (05:01→14:09)
[2021-08-16 05:29] LABS: #Lymphocytes 1.9 thou/uL (1.20-3.40); #Monocytes 0.9 thou/uL (0.11-0.59); %Basophils 0.1 % (0.0-1.0); %Eosinophils 0.5 % (0.0-10.0); %Lymphocytes 24.3 % (21.0-51.0); %Monocytes 11.8 % (0.0-10.0); %Neutrophils 63.3 % (42.0-75.0); Hemoglobin 12.8 g/dL (14.0-18.0); Mean Corpuscular HGB CONC 33.7 g/dL (32.0-36.0); Mean Corpuscular Hemoglobin 33.4 pg (27.0-31.0); Mean Corpuscular Volume 99.1 fL (78.0-98.0); Mean Platelet Volume 9.2 fL (7.4-10.4); Platelet Count 84 thou/uL (130-400); RBC Distribution Width 12.4 % (11.5-14.5); Red Blood Cell (RBC) Count 3.84 mill/uL (4.70-6.10)
[2021-08-16 05:46] LABS: Anion Gap 15 mmol/L (10-20); BUN (Urea Nitrogen) 15 mg/dL (8.4-25.7); Calc. Creatinine Clearance 66 mL/min (70-130); Calcium 8.5 mg/dL (7.8-10.44); Carbon Dioxide 23 mmol/L (23-31); Chloride 104 mmol/L (98-107); Glucose 92 mg/dL (83-110); Sodium 138 mmol/L (136-145)
[2021-08-16] MEDS: Enoxaparin Sodium 30 MG/0.3 ML SYRINGE SC SCH (07:55)
[2021-08-16] MEDS: Cefepime 1 GM in Sodium Chloride 0.9% 100 ML IVPB SCH ×2 (07:55→20:38)
[2021-08-16] MEDS ORDERED: FLU VACC QS2021-22(65YR UP)/PF 240 MCG/0.7 ML SYRINGE IM ONE (09:00)
[2021-08-16] MEDS ORDERED: Vancomycin 1.5 GRAM/300 ML BAG 1.5 GM in Premix Bag 1 BAG IVPB SCH (22:00)
[2021-08-17 04:55] LABS: #Eosinphils 0.1 thou/uL (0.0-0.7); #Lymphocytes 1.3 thou/uL (1.20-3.40); #Monocytes 0.9 thou/uL (0.11-0.59); %Basophils 0.2 % (0.0-1.0); %Eosinophils 1.2 % (0.0-10.0); %Monocytes 11.7 % (0.0-10.0); %Neutrophils 68.9 % (42.0-75.0); Hemoglobin 11.8 g/dL (14.0-18.0); Mean Corpuscular HGB CONC 33.5 g/dL (32.0-36.0); Mean Corpuscular Hemoglobin 33.4 pg (27.0-31.0); Mean Corpuscular Volume 99.7 fL (78.0-98.0); Mean Platelet Volume 9.3 fL (7.4-10.4); Platelet Count 64 thou/uL (130-400); RBC Distribution Width 12.6 % (11.5-14.5); Red Blood Cell (RBC) Count 3.54 mill/uL (4.70-6.10); White Blood Cell (WBC) Count 7.3 thou/uL (4.8-10.8)
[2021-08-17 05:10] LABS: Anion Gap 10 mmol/L (10-20); BUN (Urea Nitrogen) 11 mg/dL (8.4-25.7); Calc. Creatinine Clearance 74 mL/min (70-130); Calcium 8.2 mg/dL (7.8-10.44); Carbon Dioxide 24 mmol/L (23-31); Chloride 102 mmol/L (98-107); Glucose 138 mg/dL (83-110); Potassium 3.3 mmol/L (3.5-5.1); Sodium 133 mmol/L (136-145)
[2021-08-17] MEDS ORDERED: Potassium Bicarbonate/Cit Ac 20 MEQ TAB PO SCH (08:00)
[2021-08-17] MEDS: Cefepime 1 GM in Sodium Chloride 0.9% 100 ML IVPB SCH (09:48)
[2021-08-17] MEDS: Enoxaparin Sodium 30 MG/0.3 ML SYRINGE SC SCH (09:49)
[2021-08-17 16:53] VITALS: BP 152/71; TEMP 98.7
== END 2021-08-17 17:15 | disposition home or self-care (01) | DRG 189 ==
LOC: ERS 17:40 → 2NO 20:10
PROVIDERS: ADMIT Student in an Organized Health Care Education/Training Program; ATTEND Hospitalist
DX: J96.01 Acute respiratory failure with hypoxia (principal); Z20.822 Contact with and (suspected) exposure to COVID-19; E87.1 Hypo-osmolality and hyponatremia; R41.0 Disorientation, unspecified; R50.9 Fever, unspecified; I10 Essential (primary) hypertension; N40.0 Benign prostatic hyperplasia without lower urinary tract symptoms; I49.3 Ventricular premature depolarization; E78.5 Hyperlipidemia, unspecified; E83.42 Hypomagnesemia; D69.6 Thrombocytopenia, unspecified; E11.9 Type 2 diabetes mellitus without complications; T45.0X5A Adverse effect of antiallergic and antiemetic drugs, initial encounter; Z87.891 Personal history of nicotine dependence; Z90.49 Acquired absence of other specified parts of digestive tract; Z85.038 Personal history of other malignant neoplasm of large intestine; Z92.21 Personal history of antineoplastic chemotherapy; Z79.899 Other long term (current) drug therapy; Z79.82 Long term (current) use of aspirin; Z79.84 Long term (current) use of oral hypoglycemic drugs
CPT/HCPCS: 0240U; 36415; 36416; 71045; 74177; 80048; 80053; 81003; 81015; 83605; 83690; 83735; 84484; 85025; 85610; 85730; 87040; 87086; 93005; 94640; 94760; 96365; 96366; 96368; 96375; J0692; J1650; J1885; J3370; J3475; J3490; J7050; J7611; Q9967

== ENCOUNTER 2021-08-29 22:07 | Emergency (ER) | payer MEDICARE, MEDICAID ==
[2021-08-29 22:59] LABS: #Eosinphils 0.2 thou/uL (0.0-0.7); #Lymphocytes 1.1 thou/uL (1.20-3.40); #Monocytes 0.7 thou/uL (0.11-0.59); %Basophils 0.4 % (0.0-1.0); %Eosinophils 2.9 % (0.0-10.0); %Lymphocytes 18.4 % (21.0-51.0); %Monocytes 11.1 % (0.0-10.0); %Neutrophils 67.1 % (42.0-75.0); Hemoglobin 12.7 g/dL (14.0-18.0); Mean Corpuscular HGB CONC 33.5 g/dL (32.0-36.0); Mean Corpuscular Hemoglobin 33.6 pg (27.0-31.0); Mean Platelet Volume 7.5 fL (7.4-10.4); Platelet Count 195 thou/uL (130-400); RBC Distribution Width 13.1 % (11.5-14.5); Red Blood Cell (RBC) Count 3.79 mill/uL (4.70-6.10)
[2021-08-29 23:20] LABS: ALT (SGPT) 21 U/L (8-55); AST (SGOT) 19 U/L (5-34); Albumin 3.6 g/dL (3.4-4.8); Alkaline Phosphatase 71 U/L (40-110); Anion Gap 12 mmol/L (10-20); BUN (Urea Nitrogen) 20 mg/dL (8.4-25.7); Bilirubin, Total 0.5 mg/dL (0.2-1.2); Calc. Creatinine Clearance 0 mL/min (70-130); Calcium 8.7 mg/dL (7.8-10.44); Carbon Dioxide 25 mmol/L (23-31); Chloride 104 mmol/L (98-107); Globulin 3.5 g/dL (2.4-3.5); Glucose 150 mg/dL (83-110); Potassium 3.6 mmol/L (3.5-5.1); Protein, Total 7.1 g/dL (5.8-8.1); Sodium 137 mmol/L (136-145)
== END 2021-08-30 00:04 | disposition home or self-care (01) ==
LOC: ERS 22:07
DX: A09 Infectious gastroenteritis and colitis, unspecified (principal); E11.9 Type 2 diabetes mellitus without complications; I10 Essential (primary) hypertension; E78.5 Hyperlipidemia, unspecified; Z87.891 Personal history of nicotine dependence; Z79.4 Long term (current) use of insulin; Z79.82 Long term (current) use of aspirin; Z79.899 Other long term (current) drug therapy
CPT/HCPCS: 36415; 80053; 85025; 87324; 87449; 93005

== ENCOUNTER 2021-08-31 14:34 | Inpatient (IN) | payer MEDICARE, MEDICAID ==
[2021-08-31 15:08] LABS: #Eosinphils 0.2 thou/uL (0.0-0.7); #Lymphocytes 1.2 thou/uL (1.20-3.40); #Monocytes 0.9 thou/uL (0.11-0.59); #Neutrophils 6.5 thou/uL (1.40-6.50); %Basophils 0.1 % (0.0-1.0); %Eosinophils 2.3 % (0.0-10.0); %Lymphocytes 13.2 % (21.0-51.0); %Monocytes 10.7 % (0.0-10.0); %Neutrophils 73.6 % (42.0-75.0); Hemoglobin 14.3 g/dL (14.0-18.0); Mean Corpuscular HGB CONC 34.9 g/dL (32.0-36.0); Mean Corpuscular Hemoglobin 34.4 pg (27.0-31.0); Mean Corpuscular Volume 98.5 fL (78.0-98.0); Platelet Count 200 thou/uL (130-400); RBC Distribution Width 13.4 % (11.5-14.5); Red Blood Cell (RBC) Count 4.15 mill/uL (4.70-6.10); White Blood Cell (WBC) Count 8.8 thou/uL (4.8-10.8)
[2021-08-31] MEDS ORDERED: Morphine 4 MG/ML VIAL ONE (15:10)
[2021-08-31 15:22] LABS: Prothrombin Time 13.8 sec (12.0-14.7)
[2021-08-31 15:23] LABS: PTT 34.5 sec (22.9-36.1)
[2021-08-31 15:55] LABS: ALT (SGPT) 37 U/L (8-55); AST (SGOT) 41 U/L (5-34); Alkaline Phosphatase 55 U/L (40-110); Anion Gap 12 mmol/L (10-20); BUN (Urea Nitrogen) 15 mg/dL (8.4-25.7); Bilirubin, Total 0.7 mg/dL (0.2-1.2); Calc. Creatinine Clearance 0 mL/min (70-130); Calcium 8.5 mg/dL (7.8-10.44); Carbon Dioxide 20 mmol/L (23-31); Chloride 106 mmol/L (98-107); Globulin 3.5 g/dL (2.4-3.5); Glucose 138 mg/dL (83-110); Potassium 4.3 mmol/L (3.5-5.1); Protein, Total 7.5 g/dL (5.8-8.1); Sodium 134 mmol/L (136-145)
[2021-08-31 17:38] LABS: Magnesium 1.7 mg/dL (1.6-2.6); Phosphorus 2.7 mg/dL (2.3-4.7)
[2021-08-31] MEDS ORDERED: HumaLOG 300 UNITS/3 ML VIAL SC PRN ×2 (17:53)
[2021-08-31] MEDS ORDERED: Dextrose 5% in Water 1,000 ML IV PRN (17:53)
[2021-08-31] MEDS ORDERED: Dextrose 50% Abboject 50 ML SYRINGE SLOW IVP PRN (17:53)
[2021-08-31] MEDS ORDERED: Acetaminophen 650 MG Suppository PR PRN (17:55)
[2021-08-31] MEDS ORDERED: Acetaminophen 325 MG TAB PO PRN (17:55)
[2021-08-31] MEDS ORDERED: Electrolyte Replacement Protocol 1 EACH FS SCH (18:00)
[2021-08-31] MEDS ORDERED: Magnesium Sulfate 3 GM in Sodium Chloride 0.9% 100 ML IVPB SCH (19:15)
[2021-08-31] MEDS ORDERED: Pantoprazole 40 MG VIAL IVP SCH (19:30)
[2021-08-31] MEDS: Vancomycin 25 MG/ML Oral SOLN PO SCH (21:30)
[2021-08-31] MEDS: Heparin 5,000 UNITS/ML VIAL SC SCH (21:30)
[2021-08-31] MEDS ORDERED: Ondansetron PF 4 MG/2 ML Vial IVP PRN (21:54)
[2021-08-31] MEDS: Sodium Bicarbonate 50 MEQ in Dextrose 5 %-0.45 % NaCl 1,000 ML IV SCH (21:55)
[2021-08-31 23:45] LABS: Bacteria/HPF None Seen HPF (None Seen); Bilirubin Negative (Negative); Blood, Urine Negative (Negative); Clarity Clear (Clear); Glucose, Urine (Dipstick) Normal (Negative); Ketone, Urine Negative (Negative); Leukocyte Negative Leu/uL (Negative); Nitrite Negative (Negative); Protein, Urine (Dipstick) Negative (Neg-Trace); Specific Gravity, Urine 1.027 (1.002-1.036); Squamous Epithelial 0-3 HPF (0-3); Urobilinogen Normal mg/dL (Less than 2); WBC/HPF 0-3 HPF (0-3)
[2021-08-31 23:46] LABS: Urine Culture Reflex No No
[2021-09-01] MEDS: Vancomycin 25 MG/ML Oral SOLN PO SCH ×4 (01:12→20:10)
[2021-09-01 01:52] VITALS: BMI 25.2
[2021-09-01] MEDS: Sodium Bicarbonate 50 MEQ in Dextrose 5 %-0.45 % NaCl 1,000 ML IV SCH ×3 (02:37→18:40)
[2021-09-01 05:31] LABS: #Eosinphils 0.1 thou/uL (0.0-0.7); #Lymphocytes 1.1 thou/uL (1.20-3.40); #Monocytes 0.7 thou/uL (0.11-0.59); #Neutrophils 3.4 thou/uL (1.40-6.50); %Basophils 0.2 % (0.0-1.0); %Eosinophils 1.5 % (0.0-10.0); %Lymphocytes 20.6 % (21.0-51.0); %Monocytes 13.5 % (0.0-10.0); %Neutrophils 64.2 % (42.0-75.0); Hemoglobin 12.2 g/dL (14.0-18.0); Mean Corpuscular HGB CONC 34.6 g/dL (32.0-36.0); Mean Corpuscular Hemoglobin 34.1 pg (27.0-31.0); Mean Corpuscular Volume 98.5 fL (78.0-98.0); Mean Platelet Volume 7.5 fL (7.4-10.4); Platelet Count 155 thou/uL (130-400); Red Blood Cell (RBC) Count 3.57 mill/uL (4.70-6.10); White Blood Cell (WBC) Count 5.3 thou/uL (4.8-10.8)
[2021-09-01 06:02] LABS: Anion Gap 8 mmol/L (10-20); BUN (Urea Nitrogen) 8 mg/dL (8.4-25.7); Calc. Creatinine Clearance 75 mL/min (70-130); Calcium 7.9 mg/dL (7.8-10.44); Carbon Dioxide 20 mmol/L (23-31); Chloride 108 mmol/L (98-107); Glucose 114 mg/dL (83-110); Magnesium 2.1 mg/dL (1.6-2.6); Phosphorus 1.8 mg/dL (2.3-4.7); Potassium 3.3 mmol/L (3.5-5.1); Sodium 133 mmol/L (136-145)
[2021-09-01] MEDS ORDERED: Potassium Phosphate 15 MMOL in Sodium Chloride 0.9% 100 ML IVPB SCH ×2 (06:15→08:00)
[2021-09-01] MEDS: Heparin 5,000 UNITS/ML VIAL SC SCH ×2 (09:00→20:10)
[2021-09-01] MEDS: Finasteride 5 MG TAB PO SCH (09:12)
[2021-09-01] MEDS: Lisinopril 10 MG TAB PO SCH (09:12)
[2021-09-01] MEDS: Pantoprazole 40 MG VIAL IVP SCH (09:12)
[2021-09-01] MEDS: Tamsulosin HCl 0.4 MG CAP PO SCH (09:12)
[2021-09-01] MEDS: Saccharomyces boulardii 250 MG CAP PO SCH (09:14)
[2021-09-01 10:49] LABS: SARS-CoV-2 PCR by NAA Not Detected (NotDetected)
[2021-09-01] MEDS: Loperamide HCl 2 MG CAP PO PRN (15:34)
[2021-09-01] MEDS: Simvastatin 10 MG TAB PO SCH (20:10)
[2021-09-02] MEDS: Vancomycin 25 MG/ML Oral SOLN PO SCH ×4 (02:10→20:58)
[2021-09-02] MEDS: Sodium Bicarbonate 50 MEQ in Dextrose 5 %-0.45 % NaCl 1,000 ML IV SCH ×3 (02:10→19:10)
[2021-09-02] MEDS: Lisinopril 10 MG TAB PO SCH (09:08)
[2021-09-02] MEDS: Tamsulosin HCl 0.4 MG CAP PO SCH (09:08)
[2021-09-02] MEDS: Pantoprazole 40 MG VIAL IVP SCH (09:09)
[2021-09-02] MEDS: Heparin 5,000 UNITS/ML VIAL SC SCH ×2 (09:09→20:34)
[2021-09-02] MEDS: Finasteride 5 MG TAB PO SCH (09:09)
[2021-09-02] MEDS: Saccharomyces boulardii 250 MG CAP PO SCH (09:09)
[2021-09-02] MEDS: Loperamide HCl 2 MG CAP PO PRN (10:12)
[2021-09-02] MEDS: Simvastatin 10 MG TAB PO SCH (20:33)
[2021-09-03] MEDS: Vancomycin 25 MG/ML Oral SOLN PO SCH ×4 (02:17→20:36)
[2021-09-03] MEDS: Sodium Bicarbonate 50 MEQ in Dextrose 5 %-0.45 % NaCl 1,000 ML IV SCH ×3 (03:02→20:38)
[2021-09-03] MEDS: Lisinopril 10 MG TAB PO SCH (09:02)
[2021-09-03] MEDS: Heparin 5,000 UNITS/ML VIAL SC SCH ×2 (09:05→20:38)
[2021-09-03] MEDS: Finasteride 5 MG TAB PO SCH (09:05)
[2021-09-03] MEDS: Pantoprazole 40 MG VIAL IVP SCH (09:05)
[2021-09-03] MEDS: Saccharomyces boulardii 250 MG CAP PO SCH (09:05)
[2021-09-03] MEDS: Tamsulosin HCl 0.4 MG CAP PO SCH (09:05)
[2021-09-03 13:46] LABS: Phosphorus 2.2 mg/dL (2.3-4.7)
[2021-09-03 13:54] LABS: Anion Gap 10 mmol/L (10-20); BUN (Urea Nitrogen) 9 mg/dL (8.4-25.7); Calc. Creatinine Clearance 71 mL/min (70-130); Calcium 8.3 mg/dL (7.8-10.44); Carbon Dioxide 27 mmol/L (23-31); Chloride 102 mmol/L (98-107); Glucose 98 mg/dL (83-110); Magnesium 1.9 mg/dL (1.6-2.6); Potassium 3.4 mmol/L (3.5-5.1); Sodium 136 mmol/L (136-145)
[2021-09-03] MEDS ORDERED: Potassium Phosphate 30 MMOL in Sodium Chloride 0.9% 500 ML IVPB SCH (14:45)
[2021-09-03] MEDS ORDERED: Potassium Phosphate 30 MMOL in Sodium Chloride 0.9% 250 ML 250 ML IVPB SCH (14:45)
[2021-09-03] MEDS: Simvastatin 10 MG TAB PO SCH (20:37)
[2021-09-04] MEDS: Vancomycin 25 MG/ML Oral SOLN PO SCH ×4 (01:39→20:58)
[2021-09-04] MEDS: Sodium Bicarbonate 50 MEQ in Dextrose 5 %-0.45 % NaCl 1,000 ML IV SCH (03:53)
[2021-09-04] MEDS ORDERED: Magnesium 2 GM/50 ML 2 GM in Premix Bag 1 BAG IVPB SCH (07:00)
[2021-09-04] MEDS: Heparin 5,000 UNITS/ML VIAL SC SCH ×2 (08:02→20:58)
[2021-09-04] MEDS: Tamsulosin HCl 0.4 MG CAP PO SCH (08:02)
[2021-09-04] MEDS: Pantoprazole 40 MG VIAL IVP SCH (08:02)
[2021-09-04] MEDS: Saccharomyces boulardii 250 MG CAP PO SCH (08:02)
[2021-09-04] MEDS: Finasteride 5 MG TAB PO SCH (08:03)
[2021-09-04] MEDS: Lisinopril 10 MG TAB PO SCH (08:04)
[2021-09-04 08:37] LABS: Anion Gap 11 mmol/L (10-20); BUN (Urea Nitrogen) 9 mg/dL (8.4-25.7); Calc. Creatinine Clearance 75 mL/min (70-130); Calcium 8.8 mg/dL (7.8-10.44); Carbon Dioxide 25 mmol/L (23-31); Chloride 104 mmol/L (98-107); Glucose 125 mg/dL (83-110); Magnesium 1.9 mg/dL (1.6-2.6); Phosphorus 2.2 mg/dL (2.3-4.7); Potassium 3.7 mmol/L (3.5-5.1); Sodium 136 mmol/L (136-145)
[2021-09-04] MEDS ORDERED: Potassium Phosphate 30 MMOL in Sodium Chloride 0.9% 500 ML IVPB SCH (12:30)
[2021-09-04] MEDS: Simvastatin 10 MG TAB PO SCH (20:58)
[2021-09-05] MEDS: Vancomycin 25 MG/ML Oral SOLN PO SCH ×2 (02:05→09:09)
[2021-09-05] MEDS: Pantoprazole 40 MG VIAL IVP SCH (09:09)
[2021-09-05] MEDS: Heparin 5,000 UNITS/ML VIAL SC SCH (09:09)
[2021-09-05] MEDS: Finasteride 5 MG TAB PO SCH (09:10)
[2021-09-05] MEDS: Tamsulosin HCl 0.4 MG CAP PO SCH (09:10)
[2021-09-05] MEDS: Lisinopril 10 MG TAB PO SCH (09:10)
[2021-09-05 12:15] VITALS: BP 115/73; TEMP 97.5
[2021-09-06 19:37] LABS: Norovirus GI Negative (Negative); Norovirus GII Negative (Negative)
== END 2021-09-05 12:24 | disposition home or self-care (01) | DRG 372 ==
LOC: ERS 14:34 → SURG A 16:51 → OBSVTOIN 09-01 16:41
PROVIDERS: ADMIT Internal Medicine; ATTEND Internal Medicine
DX: A04.72 Enterocolitis due to Clostridium difficile, not specified as recurrent (principal); E87.1 Hypo-osmolality and hyponatremia; Z20.822 Contact with and (suspected) exposure to COVID-19; E86.0 Dehydration; D64.9 Anemia, unspecified; I10 Essential (primary) hypertension; D49.89 Neoplasm of unspecified behavior of other specified sites; N40.0 Benign prostatic hyperplasia without lower urinary tract symptoms; E11.9 Type 2 diabetes mellitus without complications; E78.5 Hyperlipidemia, unspecified; F03.90 Unspecified dementia, unspecified severity, without behavioral disturbance, psychotic disturbance, mood disturbance, and anxiety; Z90.49 Acquired absence of other specified parts of digestive tract; Z85.038 Personal history of other malignant neoplasm of large intestine; Z92.21 Personal history of antineoplastic chemotherapy; Z79.899 Other long term (current) drug therapy; Z79.82 Long term (current) use of aspirin; Z79.84 Long term (current) use of oral hypoglycemic drugs; Z87.891 Personal history of nicotine dependence
CPT/HCPCS: 36415; 36416; 74177; 80048; 80053; 81001; 83605; 83630; 83735; 84100; 85025; 85610; 85730; 87015; 87040; 87045; 87046; 87081; 87206; 87324; 87328; 87329; 87427; 87449; 87798; 93005; 94760; 96374; C9113; J1644; J1815; J2270; J3475; J3490; J7030; J7042; J7050; U0003; U0005

== ENCOUNTER 2022-03-04 07:20 | Emergency (ER) | payer MEDICARE, MEDICAID ==
[2022-03-04 07:54] LABS: #Basophils 0.1 thou/uL (0.0-0.2); #Eosinphils 0.1 thou/uL (0.0-0.7); #Lymphocytes 1.7 thou/uL (1.20-3.40); #Monocytes 0.7 thou/uL (0.11-0.59); #Neutrophils 5.3 thou/uL (1.40-6.50); %Basophils 0.7 % (0.0-1.0); %Eosinophils 1.8 % (0.0-10.0); %Lymphocytes 21.3 % (21.0-51.0); %Monocytes 8.6 % (0.0-10.0); %Neutrophils 67.6 % (42.0-75.0); Hemoglobin 13.9 g/dL (14.0-18.0); Mean Corpuscular HGB CONC 33.9 g/dL (32.0-36.0); Mean Corpuscular Hemoglobin 34.1 pg (27.0-31.0); Mean Platelet Volume 8.4 fL (7.4-10.4); Platelet Count 132 thou/uL (130-400); RBC Distribution Width 12.5 % (11.5-14.5); Red Blood Cell (RBC) Count 4.08 mill/uL (4.70-6.10); White Blood Cell (WBC) Count 7.9 thou/uL (4.8-10.8)
[2022-03-04 08:16] LABS: ALT (SGPT) 24 U/L (8-55); AST (SGOT) 24 U/L (5-34); Albumin 4.2 g/dL (3.4-4.8); Alkaline Phosphatase 63 U/L (40-110); Anion Gap 14 mmol/L (10-20); BUN (Urea Nitrogen) 19 mg/dL (8.4-25.7); Bilirubin, Total 0.7 mg/dL (0.2-1.2); Calc. Creatinine Clearance 0 mL/min (70-130); Calcium 9.1 mg/dL (7.8-10.44); Carbon Dioxide 21 mmol/L (23-31); Chloride 106 mmol/L (98-107); Globulin 3.4 g/dL (2.4-3.5); Glucose 126 mg/dL (83-110); Potassium 4.6 mmol/L (3.5-5.1); Protein, Total 7.6 g/dL (5.8-8.1); Sodium 136 mmol/L (136-145)
[2022-03-04 08:45] LABS: Bilirubin Negative (Negative); Blood, Urine Negative (Negative); Clarity Clear (Clear); Glucose, Urine (Dipstick) Normal (Negative); Ketone, Urine Negative (Negative); Leukocyte Negative Leu/uL (Negative); Nitrite Negative (Negative); Protein, Urine (Dipstick) Negative (Neg-Trace); Specific Gravity, Urine 1.015 (1.002-1.036); Urobilinogen Normal mg/dL (Less than 2); pH, Urine 5.5 (5.0-9.0)
== END 2022-03-04 12:17 | disposition home or self-care (01) ==
LOC: ERS 07:20
DX: R53.1 Weakness (principal); R29.700 NIHSS score 0; I45.2 Bifascicular block; I10 Essential (primary) hypertension; E11.9 Type 2 diabetes mellitus without complications; E78.5 Hyperlipidemia, unspecified; Z87.891 Personal history of nicotine dependence
CPT/HCPCS: 36415; 70450; 71045; 80053; 81003; 84484; 85025; 93005

== ENCOUNTER 2022-12-16 03:58 | Inpatient (IN) | payer MEDICARE, MEDICAID ==
[2022-12-16] MEDS ORDERED: Rocuronium Bromide 10 MG/ML (10ML VIAL) ONE (04:05)
[2022-12-16] MEDS ORDERED: Labetalol HCl 100 MG/20 ML VIAL ONE (04:09)
[2022-12-16] MEDS ORDERED: niCARdipine 25 MG/10 ML SDV ONE (04:10)
[2022-12-16 04:34] LABS: Actual Bicarbonate (HCO3a) 21.8 mEq/L (22-28); Analyzer IN Cardio ER; Base Excess (BEa) 0.4 mEq/L (-2.0 to +3.0); CO2 Tension 26.8 mmHg (35.0-45.0); Calcium, Ionized (arterial) 1.09 mmol/L (1.12-1.30); Carboxyhemoglobin (COHb) 0.3 gm% (0.0-3.0); O2 Tension (PaO2), arterial 324.7 mmHg (> 60.0); Potassium - ABG Lab 3.42 mmol/L (3.70-5.30); pH, Arterial 7.53 (7.35-7.45)
[2022-12-16 04:36] LABS: Puncture Site LRA
[2022-12-16 04:49] LABS: #Eosinphils 0.1 thou/uL (0.0-0.7); #Lymphocytes 1.6 thou/uL (1.20-3.40); #Monocytes 0.7 thou/uL (0.11-0.59); #Neutrophils 5.9 thou/uL (1.40-6.50); %Basophils 0.5 % (0.0-1.0); %Eosinophils 1.6 % (0.0-10.0); %Lymphocytes 19.3 % (21.0-51.0); %Monocytes 8.1 % (0.0-10.0); %Neutrophils 70.5 % (42.0-75.0); Hemoglobin 12.1 g/dL (14.0-18.0); Mean Corpuscular HGB CONC 33.7 g/dL (32.0-36.0); Mean Corpuscular Hemoglobin 32.9 pg (27.0-31.0); Mean Corpuscular Volume 97.6 fl (78.0-98.0); Mean Platelet Volume 8.3 fL (7.4-10.4); Platelet Count 130 10x3/uL (130-400); RBC Distribution Width 12.5 % (11.5-14.5); Red Blood Cell (RBC) Count 3.69 mill/uL (4.70-6.10); White Blood Cell (WBC) Count 8.4 10x3/uL (4.8-10.8)
[2022-12-16] MEDS ORDERED: Electrolyte Replacement Protocol 1 EACH IVPB SCH (04:54)
[2022-12-16 04:59] LABS: INR-International Normal Ratio 0.9; Prothrombin Time 12.1 sec (12.0-14.7)
[2022-12-16 05:00] LABS: PTT 26.3 sec (22.9-36.1)
[2022-12-16 05:01] LABS: Acetaminophen Less than 10.0 mcg/mL (10.0-30.0); Alcohol Less than 10 mg/dL (Less than 10); CK (CPK) 109 U/L (30-200); Salicylate Less than 8.0 mg/dL (15.0-30.0)
[2022-12-16 05:02] LABS: ALT (SGPT) 17 U/L (8-55); AST (SGOT) 25 U/L (5-34); Albumin 3.9 g/dL (3.4-4.8); Alkaline Phosphatase 72 U/L (40-110); Anion Gap 12 mmol/L (10-20); BUN (Urea Nitrogen) 20 mg/dL (8.4-25.7); Bilirubin, Total 0.4 mg/dL (0.2-1.2); Calc. Creatinine Clearance 0 mL/min (70-130); Calcium 8.9 mg/dL (7.8-10.44); Carbon Dioxide 23 mmol/L (23-31); Chloride 104 mmol/L (98-107); Estimated GFR 83; Globulin 3.3 g/dL (2.4-3.5); Glucose 186 mg/dL (83-110); Potassium 3.4 mmol/L (3.5-5.1); Protein, Total 7.2 g/dL (5.8-8.1); Sodium 136 mmol/L (136-145)
[2022-12-16] MEDS ORDERED: fentaNYL 50 mcg/mL 1 mL Vial ONE (05:31)
[2022-12-16] MEDS ORDERED: Fentanyl CADD 100 ML IV SCH ×2 (05:45→11:15)
[2022-12-16 07:34] LABS: Lactic Acid 2.8 mmol/L (0.5-2.2)
[2022-12-16] MEDS ORDERED: Propofol 1,000 MG/100 ML VIAL IV ONE (08:29)
[2022-12-16] MEDS: Potassium Chloride 20 MEQ in Premix Bag 1 BAG IVPB SCH ×2 (10:51→12:23)
[2022-12-16] MEDS: niCARdipine 25 MG in Sodium Chloride 0.9% 250 ML 250 ML IVPB SCH ×3 (10:52→17:37)
[2022-12-16] MEDS ORDERED: Propofol 1,000 MG/100 ML VIAL IV PRN (11:15)
[2022-12-16] MEDS ORDERED: DISCONTINUE PREVIOUS NARCOTIC PAIN MEDICATIONS AND BENZODIAZEPINES FS SCH (11:15)
[2022-12-16] MEDS ORDERED: Fentanyl BOLUS 250 ML IVPB PRN (11:15)
[2022-12-16] MEDS ORDERED: Propofol BOLUS 1,000 MG/100 ML VIAL IV PRN (11:15)
[2022-12-16] MEDS ORDERED: Acetaminophen 650 MG/20.3 ML UDCUP PO PRN (11:58)
[2022-12-16] MEDS ORDERED: Dextrose 5% in Water 1,000 ML IV PRN (11:59)
[2022-12-16] MEDS ORDERED: Dextrose 50% Abboject 50 ML SYRINGE SLOW IVP PRN (11:59)
[2022-12-16 12:47] LABS: SARS-CoV-2 NAA Rapid Test Not Detected (NotDetected)
[2022-12-16] MEDS ORDERED: Pantoprazole 40 MG VIAL IVP SCH (21:00)
[2022-12-16] MEDS: Insulin Regular 300 UNITS/3 ML VIAL SC PRN (23:23)
[2022-12-17] MEDS: niCARdipine 25 MG in Sodium Chloride 0.9% 250 ML 250 ML IVPB SCH ×4 (01:22→15:22)
[2022-12-17 04:53] LABS: Actual Bicarbonate (HCO3v) 20 mEq/L (22-28); Base Excess -2.3 mEq/L (-2.0 to +3.0); Calcium, Ionized (venous) 1.09 mmol/L (1.16-1.32); Chloride (VBG) 103 mmol/L (98-106); Potassium (VBG) 3.66 mmol/L (3.70-5.30); Sodium 130.6 mmol/L (133-146); pH (venous) 7.47 (7.32-7.43)
[2022-12-17 05:05] LABS: #Lymphocytes 1.6 thou/uL (1.20-3.40); #Neutrophils 13.3 thou/uL (1.40-6.50); %Basophils 0.2 % (0.0-1.0); %Eosinophils 0.2 % (0.0-10.0); %Monocytes 6.1 % (0.0-10.0); %Neutrophils 83.6 % (42.0-75.0); Hemoglobin 12.6 g/dL (14.0-18.0); Mean Corpuscular Hemoglobin 34.3 pg (27.0-31.0); Mean Corpuscular Volume 98.2 fl (78.0-98.0); Mean Platelet Volume 8.3 fL (7.4-10.4); Platelet Count 124 10x3/uL (130-400); Red Blood Cell (RBC) Count 3.68 mill/uL (4.70-6.10); White Blood Cell (WBC) Count 15.9 10x3/uL (4.8-10.8)
[2022-12-17] MEDS: Insulin Regular 300 UNITS/3 ML VIAL SC PRN ×2 (05:28→11:55)
[2022-12-17 05:31] LABS: ALT (SGPT) 19 U/L (8-55); AST (SGOT) 22 U/L (5-34); Albumin 3.8 g/dL (3.4-4.8); Alkaline Phosphatase 45 U/L (40-110); Anion Gap 13 mmol/L (10-20); BUN (Urea Nitrogen) 14 mg/dL (8.4-25.7); Calc. Creatinine Clearance 64 mL/min (70-130); Calcium 8.8 mg/dL (7.8-10.44); Carbon Dioxide 21 mmol/L (23-31); Chloride 105 mmol/L (98-107); Estimated GFR 83; Globulin 3.4 g/dL (2.4-3.5); Glucose 195 mg/dL (83-110); Potassium 3.6 mmol/L (3.5-5.1); Protein, Total 7.2 g/dL (5.8-8.1); Sodium 135 mmol/L (136-145)
[2022-12-17] MEDS ORDERED: LORazepam 2 MG/ML SYR.(CARPUJECT) IVP STA (09:56)
[2022-12-17] MEDS ORDERED: Lorazepam 2 MG/ML VIAL SLOW IVP STA (09:59)
[2022-12-17] MEDS ORDERED: levETIRAcetam 500 MG/5 ML VIAL SLOW IVP SCH (10:00)
[2022-12-17] MEDS ORDERED: Sodium Chloride 0.9% 1,000 ML IV SCH (10:30)
[2022-12-17] MEDS: Lorazepam 2 MG/ML VIAL SLOW IVP PRN ×4 (13:56→17:19)
[2022-12-17 14:11] VITALS: BMI 27.2
[2022-12-17] MEDS: Morphine 2 MG/ML VIAL SLOW IVP PRN ×2 (15:25→17:00)
[2022-12-17] MEDS ORDERED: Scopolamine 1.5 mg/72 hour Patch TD SCH (16:30)
[2022-12-17] MEDS ORDERED: Morphine 10 MG/ML VIAL SLOW IVP SCH (17:00)
[2022-12-17] MEDS: Morphine 4 MG/ML VIAL SLOW IVP PRN (23:08)
[2022-12-18] MEDS: Morphine 4 MG/ML VIAL SLOW IVP PRN ×7 (03:13→23:50)
[2022-12-18] MEDS: Acetaminophen 650 MG Suppository PR PRN ×2 (09:11→21:45)
[2022-12-18] MEDS: Lorazepam 2 MG/ML VIAL SLOW IVP PRN ×5 (13:34→21:31)
[2022-12-19] MEDS: Morphine 4 MG/ML VIAL SLOW IVP PRN ×4 (02:56→11:26)
[2022-12-19] MEDS: Lorazepam 2 MG/ML VIAL SLOW IVP PRN ×4 (02:57→11:27)
[2022-12-19] MEDS: Acetaminophen 650 MG Suppository PR PRN (06:11)
[2022-12-19 06:12] VITALS: TEMP 103.1
[2022-12-19 07:56] VITALS: BP 124/69
== END 2022-12-19 13:59 | disposition expired | DRG 64 ==
LOC: ERS 03:58 → ERHOLD 05:35 → CCU 08:25 → MSONC 12-17 22:29
PROVIDERS: ADMIT Student in an Organized Health Care Education/Training Program; ATTEND Hospitalist
PROC: 4A133R1 Monitoring of Arterial Saturation, Peripheral, Percutaneous Approach (ICD-10-PCS; principal; 2022-12-16)
PROC: 0BH17EZ Insertion of Endotracheal Airway into Trachea, Via Natural or Artificial Opening (ICD-10-PCS; 2022-12-16)
PROC: 0DH67UZ Insertion of Feeding Device into Stomach, Via Natural or Artificial Opening (ICD-10-PCS; 2022-12-16)
PROC: 3E0G76Z Introduction of Nutritional Substance into Upper GI, Via Natural or Artificial Opening (ICD-10-PCS; 2022-12-16)
PROC: 5A1935Z Respiratory Ventilation, Less than 24 Consecutive Hours (ICD-10-PCS; 2022-12-16)
DX: I61.8 Other nontraumatic intracerebral hemorrhage (principal); G93.6 Cerebral edema; J96.00 Acute respiratory failure, unspecified whether with hypoxia or hypercapnia; E87.20 Acidosis, unspecified; I16.1 Hypertensive emergency; Z20.822 Contact with and (suspected) exposure to COVID-19; I11.9 Hypertensive heart disease without heart failure; Z66 Do not resuscitate; I60.9 Nontraumatic subarachnoid hemorrhage, unspecified; Z51.5 Encounter for palliative care; N40.0 Benign prostatic hyperplasia without lower urinary tract symptoms; E78.5 Hyperlipidemia, unspecified; E87.6 Hypokalemia; D64.9 Anemia, unspecified; E11.65 Type 2 diabetes mellitus with hyperglycemia; R29.74 NIHSS score 40-42; Z78.1 Physical restraint status; Z87.891 Personal history of nicotine dependence; Z79.84 Long term (current) use of oral hypoglycemic drugs; Z79.899 Other long term (current) drug therapy; Z90.49 Acquired absence of other specified parts of digestive tract
CPT/HCPCS: 31500; 36415; 36416; 36600; 70450; 71045; 80053; 80307; 82550; 82805; 83605; 83880; 84484; 85025; 85610; 85730; 86850; 86900; 86901; 93005; 94002; 94003; 95712; 95819; 95957; 96365; 96366; 96374; 96375; C9113; J1815; J2060; J2270; J2272; J3010; J3480; J7050; U0002